=== PATIENT | female | born 1985 | race African-American/Black ===

== ENCOUNTER 2022-05-02 20:36 | Emergency (ER) | payer MEDICAID ==
[~2022-05-02] VITALS: Ht 160 cm; Wt 74.7 kg
[~2022-05-02 20:36] MED LIST: METH-773 MT; NAPR-681 MT
[2022-05-02 21:09] VITALS: BP 158/88
== END 2022-05-03 01:18 | disposition left against medical advice (07) ==
LOC: ER 20:36
DX: Z53.21 Procedure and treatment not carried out due to patient leaving prior to being seen by health care provider (principal)
CPT/HCPCS: 93005